=== PATIENT | male | born 1995 | race Caucasian/White ===

== ENCOUNTER → 2024-09-30 11:21 | Outpatient (CLI) | payer OTHER, SELFPAY ==
[2024-09-30 13:21] LABS: Urine N gonorrhoeae NOT DETECTED
[2024-09-30 13:22] LABS: Urine Chlamydia NOT DETECTED
== END ==
PROVIDERS: Visit Provider Chiropractor
DX: R30.0 Dysuria (principal)
CPT/HCPCS: 87086; 87210; 87491; 87591